=== PATIENT | female | born 1955 | race Caucasian/White ===

== ENCOUNTER 2018-10-21 00:48 | Outpatient (CLI) | payer BC, SELFPAY ==
--- NOTE | 2018-10-21 16:49 | DI.MAMMO_ITS ---
SYMPTOM/DIAGNOSIS: SCREENING, Z12.39 MAMMOGRAMS: Mammograms were interpreted according to the usual protocol including computer analysis with CAD system, tomosynthesis and C view imaging. The breast tissue is of moderate radiodensity. There is no dominant mass. There are no suspicious calcifications. There has been no significant interval change when compared with prior images. SUMMARY: No evidence of malignancy, category 1. Yearly screening mammography is recommended. Breast density, Category B. SA ASSESSMENT OF FINDINGS: Negative. Category 1. Patient will receive a letter notifying them of these results. BI-RADS category B. There are scattered areas of fibroglandular density.
== END 2018-10-21 01:08 ==
PROVIDERS: PCP Nurse Practitioner; Visit Provider Nurse Practitioner
DX: Z12.31 Encounter for screening mammogram for malignant neoplasm of breast (principal)
CPT/HCPCS: 77063; 77067

== ENCOUNTER 2018-11-28 09:45 | Outpatient (REF) | payer BC, SELFPAY ==
[2018-11-28 12:30] LABS: Calculated LDL 160 mg/dL; Cholesterol 267 mg/dL (50-200); Glucose 96 mg/dL (70-100); HDL Cholesterol 89 mg/dL (40-60); TSH (W/Ref FT4) 12.06 uIU/mL (0.358-3.74); Triglyceride 94 mg/dL (30-150)
[2018-11-29 13:56] LABS: FREE T4 0.91 ng/dL (0.76-1.46)
== END 2018-11-28 10:05 ==
LOC: NCHCN 09:45
PROVIDERS: PCP Nurse Practitioner; Visit Provider Nurse Practitioner
DX: Z00.00 Encounter for general adult medical examination without abnormal findings (principal); Z13.1 Encounter for screening for diabetes mellitus; Z13.29 Encounter for screening for other suspected endocrine disorder; Z13.220 Encounter for screening for lipoid disorders
CPT/HCPCS: 80061; 82947; 83721; 84439; 84443

== ENCOUNTER 2020-07-29 09:09 | Outpatient (REF) | payer MEDICARE, SELFPAY ==
[2020-07-29 15:45] LABS: Abs Immature Grans 0.01 10^3/uL (0.0-0.06); Absolute Basophil Count 0.04 10^3/uL (0.0-0.2); Absolute Lymphocyte Count 1.09 10^3/uL (1.2-3.4); Absolute Monocyte Count 0.46 10^3/uL (0.1-0.8); Absolute Neutrophil Count 3.49 10^3/uL (1.2-6.7); Basophils % 0.8; Eosinophils % 3.8; HGB 13.1 g/dL (11.2-15.7); Immature Grans % 0.2; Lymphocytes % 20.6; MCH 29.2 pg (27.0-33.0); MCHC 32.8 % (32.0-36.0); MCV 89.1 fL (80-95); MPV 11.4 fL (8.0-11.0); Monocytes % 8.7; Neutrophils % 65.9; Nucleated RBC 0 %; Platelet Count 298 10^3/uL (130-400); RBC 4.49 10^6/uL (3.93-5.22); RDW 12.9 % (11.7-14.6); RDW-SD 42.1 fL; WBC 5.29 10^3/uL (4.4-10.8)
[2020-07-29 16:12] LABS: ALT 30 U/L (14-59); AST 26 U/L (15-37); Alkaline Phosphatase 99 U/L (46-116); Anion Gap 6.3 mmol/L (3-11); BUN 11 mg/dL (7-18); Bilirubin, Total 0.3 mg/dL (0.2-1.0); CO2 31.7 mmol/L (21.0-32.0); CREATININE 0.8 mg/dL (0.55-1.02); Calcium 9.6 mg/dL (8.5-10.1); Calculated LDL 143 mg/dL (<100); Chloride 102 mmol/L (98-107); Cholesterol 249 mg/dL (<200); Glucose 113 mg/dL (74-106); HDL Cholesterol 90 mg/dL (40-60); Potassium 4.2 mmol/L (3.5-5.1); Sodium 140 mmol/L (136-145); Total Protein 7.5 g/dL (6.4-8.2); Triglyceride 82 mg/dL (<150)
[2020-07-29 16:27] LABS: Vitamin D 25 Total 59.1 ng/ml (30-100)
== END 2020-07-29 09:10 | disposition home or self-care (01) ==
LOC: NCHCN 09:09
PROVIDERS: PCP Nurse Practitioner; Visit Provider Nurse Practitioner
DX: Z00.00 Encounter for general adult medical examination without abnormal findings (principal); K58.9 Irritable bowel syndrome, unspecified; E78.5 Hyperlipidemia, unspecified; E03.9 Hypothyroidism, unspecified
CPT/HCPCS: 80053; 80061; 82306; 84443; 85025

== ENCOUNTER 2020-08-04 02:40 | Outpatient (CLI) | payer MEDICARE, SELFPAY ==
--- NOTE | 2020-08-04 | DI.MAMMO_ITS ---
EXAM: MG MAMMO SCREENING CLINICAL HISTORY: SCREENING, Z12.39. TECHNIQUE: Bilateral full field digital CC and MLO mammographic images were obtained with 3D tomosyn thesis and utilizing computer aided detection (CAD). COMPARISON: Prior mammograms dating back to 2010, the most recent being October 2018. FINDINGS: There is stable benign-appearing solitary nodules noted laterally in both breasts, unchanged from estevan or studies and having the appearance of benign intramammary lymph nodes. There are no new spiculated masses nor malignant appearing microcalcification groups. There is no significant architectural distortion nor skin thickening-retraction. IMPRESSION: No radiographic evidence of malignancy. Stable benign findings. BI-RADS Category 2 - Benign Findings Breast Density - Category B - Scattered areas of fibroglandular density Breast density Category C or D implies that the patient has dense breast tissue. Dense breast tissue can make it harder to find cancer on a mammogram. Dense breast tissue is also associated with an incr eased risk of breast cancer. This information about the result of the mammogram report was provided to the patient to raise their awareness. Use this report when you speak with the patient about their risks for breast cancer, which includes their family history. At that time, you may recommend additional screening tests (Ultrasoun d or MRI) as these tests may add significant information. A negative radiographic report should not delay biopsy if a dominant or clinically suspicious mass is present. Up to ten percent of cancers are not identified on mammography. A negative report may reinforce clinical impression. Adenosis and dense breasts may obscure an underlying neoplasm. False positive reports average 6 to 10%. Patient will receive a letter notifying them of these results.
== END 2020-08-04 03:00 ==
PROVIDERS: PCP Nurse Practitioner; Visit Provider Nurse Practitioner
DX: Z12.31 Encounter for screening mammogram for malignant neoplasm of breast (principal)
CPT/HCPCS: 77063; 77067

== ENCOUNTER → 2020-08-05 15:20 | Outpatient (BNVA) | payer MEDICARE, SELFPAY | PROVIDERS: PCP Nurse Practitioner; Referring Provider Nurse Practitioner; Visit Provider Physical Therapy Assistant | DX: Z12.11 Encounter for screening for malignant neoplasm of colon (principal) ==

== ENCOUNTER 2020-08-06 08:23 | Outpatient (CLI) | payer MEDICARE, SELFPAY ==
[2020-08-06 10:18] LABS: Source Nasal/Nares
[2020-08-06 14:35] LABS: COVID-19 PCR Negative (Negative)
== END 2020-08-06 08:24 | disposition home or self-care (01) ==
PROVIDERS: PCP Nurse Practitioner; Visit Provider Surgery
DX: Z20.822 Contact with and (suspected) exposure to COVID-19 (principal); Z01.818 Encounter for other preprocedural examination
CPT/HCPCS: 87635

== ENCOUNTER 2020-08-09 10:06 | Day surgery (SDC) | payer MEDICARE, SELFPAY ==
--- NOTE | 2020-08-09 06:38 | W.COLOREPORT ---
Date of service: 08/09/20 Time of Service: 12:26 Colonoscopy Report Date of procedure: 08/09/20 Pre-op diagnosis general: colon cancer screening Procedure: sigmoidoscopy Surgeon: Laura Yee Anesthesia Type: General:No Airway (ASA 2/Sixto Orona, CHARLIE) Estimated blood loss (mL): 0 Pathology: none sent Complications: None Disposition: same day Indications: The patient is here for Colonoscopy pre-op. Her last screening was in 2010 and was unremarkable. She has no family history of colon cancer. She has not had any bowel habit changes. -Discussed colonoscopy bowel prep as well as the procedure. Discussed possible complications of the procedure to include bleeding, pain, perforation, missed small lesion/polyp, sore throat, aspiration and adverse reaction to the medications. Questions were answered to patient?s satisfaction. No guarantees were implied or given. Prep: Miralax/Dulcolax Findings: There was an acute angle in the sigmoid colon in the pelvis that I was unable to get through. Procedure Description: After informed consent was obtained the patient was taken to the procedure room and placed in a left decubitous position. Monitors were applied and a time out was done. The patients name, date of , procedure, allergies to medications and metal in their body was reviewed. The patient was then sedated. Once sedated and comfortable a rectal exam was done. External exam was normal. Internal exam revealed a normal sphincter tone and no palpable masses. The scope was then introduced and retro-flexed. No internal hemorrhoids, polyps or masses were identified on retro-flexion. The scope was then advanced to the sigmoid colon. There was a sharp angle as I tried to get out of the pelvis. I attempted to get around the corner for 20 minutes without success. At this point I felt that if I tried to continue I may perforate her so the procedure was aborted. The scope was removed and the patient was woken up and taken back to Same day surgery in stable condition. The patient tolerated the procedure well and there were no immediate complications. Follow up: As the patient has not had any polyps in the past I think doing the Cologuard would be a good alternative for her.
--- NOTE | 2020-08-09 06:39 | W.PM.DSUDISC ---
Discharge Plan Disposition Patient Disposition: HOME Condition: Good Discharge Details Reason For Visit: colonoscopy Attending Provider: Laura Yee Primary Care Provider: Donna Dangelo Home Meds and New Rx's Prescriptions: Continued cholecalciferol (vitamin D3) 75 mcg (3,000 unit) tablet 75 mcg PO DAILY RF: 0 amoxicillin 500 mg capsule 500 mg PO QID RF: 0 naproxen [EC-Naproxen] 500 mg tablet,delayed release (DR/EC) 500 mg PO BID RF: 0 Adult 50 Plus Probiotic 4 billion cell capsule 4,000 mmu cells PO DAILY RF: 0 levothyroxine 125 mcg capsule 125 mcg PO DAILY RF: 0 omeprazole 40 mg capsule,delayed release(DR/EC) 40 mg PO DAILY RF: 0 dicyclomine 20 mg tablet 20 mg PO QID RF: 0 multivitamin Tablet 1 tab PO DAILY RF: 0 Discontinued bisacodyl [Dulcolax (bisacodyl)] 5 mg tablet,delayed release (DR/EC) 5 mg PO ONCE Qty: 4 RF: 0 polyethylene glycol 3350 17 gram/dose powder 238 g PO ONCE Qty: 238 RF: 0 Discharge Instructions Additional Instructions: Findings: Unable to complete due to a sharp angle in the large bowel in the pelvis Follow up: NOt sure Please call if you develop: fevers >101.5 Nausea or Vomiting Abdominal pain that is not transient DAY SURGERY UNIT POST ENDOSCOPY INSTRUCTIONS 1. Because there will be medication in your system for the next 24 hours, you may feel a little sleepy. Your coordination will be affected. Therefore: a. Do not drive or operate dangerous equipment for 24 hours. b. Do not drink alcohol beverages for 24 hours (not even beer). c. Plan to go home and rest for the day. 2. Generally there are no restrictions on your activity after a day or so has gone by, but you may feel a bit fatigued for a few days. 3 After you arrive home you may have a light meal and return to a normal diet as you can tolerate it without feeling sick to your stomach. 4. After surgery, you may feel pain or discomfort. This should be only transient, but if it persists please contact your doctor. 5. If there are any questions regarding the findings of your procedure, please feel free to contact your doctor. 6. If you are unable to contact your doctor with a problem, contact the hospital at [phone]. 8. Continue all your regular medications unless directed otherwise. I understand the above instructions and have no questions. Signature of Patient or Responsible Adult Escort Date/Time Name of Responsible Adult Escort Signature of Nurse Date/Time Activity:: Activity as Tolerated Diet:: As Tolerated Discharge Orders Discharge Orders: Discharge Order (Routine); Ordered 08/09/20 Ordered By: Laura Yee
[2020-08-09 10:15] VITALS: BP 164/94; PULSE 78; RESP 18; TEMP 36.7; O2SAT 96
[2020-08-09] MEDS: Lactated Ringers 1,000 ML 80 ML IV (10:55)
[2020-08-09] MEDS: Hyoscyamine 0.125 MG SL/ORAL/CHEW SL (12:49)
[2020-08-09 13:00] VITALS: BP 140/71; PULSE 74; RESP 18; TEMP 36.5; O2SAT 100
== END 2020-08-09 13:48 | disposition home or self-care (01) ==
PROVIDERS: PCP Nurse Practitioner; Visit Provider Surgery
PROC: 0DJD8ZZ Inspection of Lower Intestinal Tract, Via Natural or Artificial Opening Endoscopic (ICD-10-PCS; CPT 45378; principal; 2020-08-09 11:45)
DX: Z12.11 Encounter for screening for malignant neoplasm of colon (principal); K62.5 Hemorrhage of anus and rectum
CPT/HCPCS: G0105; J2001; J3490

== ENCOUNTER 2020-08-13 04:03 | Outpatient (CLI) | payer MEDICARE, SELFPAY ==
[2020-08-13] MEDS: Omnipaque 350 MG/ML 50 ML BTL IJ (09:50)
[2020-08-13] MEDS: Normal Saline - Diluent 50 ML VIAL IV (10:36)
[2020-08-13] MEDS: Omnipaque 350 MG/ML 100 ML BTL IJ (10:37)
--- NOTE | 2020-08-13 10:41 | DI.CT_ITS ---
EXAM: CT ABDOMEN PELVIS W INDICATION: bleeding, diarrhea, unable to get the scope past SIGMOID COLON. COMPARISON: No exams were available for comparison TECHNIQUE: FINDINGS: CT examination of the abdomen and pelvis was performed with a bolus infusion of 100 cc of Omnipaque 3 50. Images obtained through the lung bases are unremarkable. The liver is unremarkable in appearance except for an incidental 9 millimeter left hepatic lobe cyst. Gallbladder and bile ducts are CT normal. Pancreas appears normal. Spleen is unremarkable in appearance. Adrenals appear normal. The kidneys are unremarkable except for a 14 millimeter left renal cortical cyst with no evidence of hydronephrosis, nephrolithiasis, or renal mass.. Urinary bladder unremarkable. Abdominal aorta is of normal diameter and no major vascular abnormality is seen. No abdominal wall hernia. No abdominal or pelvic adenopathy. [employer] structures appear intact. Appendix is normal. No evidence of diverticulitis or bowel obstruction. IMPRESSION: Negative CT examination of the abdomen and pelvis. RADIATION DOSE DELIVERED: 973.73mGy.cm Total DLP 973.73mGy.cm Total DLP RADIATION OPTIMIZATION: All CT scans at this facility use at least one of these dose optimization te chniques: automated exposure control; mA and/or kV adjustment per patient size (includes targeted exa ms where dose is matched to clinical indication); or iterative reconstruction.
== END 2020-08-13 04:23 ==
PROVIDERS: PCP Nurse Practitioner; Visit Provider Surgery
DX: K92.1 Melena (principal); R19.7 Diarrhea, unspecified
CPT/HCPCS: 74177; J3490; Q9967

== ENCOUNTER 2020-11-03 11:09 | Day surgery (SDC) | payer MEDICARE, SELFPAY ==
--- NOTE | 2020-11-03 06:54 | W.PREOPHP ---
Date of service: 11/03/20 Assessment and Plan Assessment and plan (1) Blood in stool: Status: Acute Assessment and plan: The patient is here for Colonoscopy pre-op. Her last screening was in 2010 and was unremarkable. She has no family history of colon cancer. She has noted bowel habit changes that include multiple BMs per day, initally starting out normal which progress to soft stools, with visible bright red blood on the stool. -Discussed colonoscopy bowel prep as well as the procedure. Discussed possible complications of the procedure to include bleeding, pain, perforation, missed small lesion/polyp, sore throat, aspiration and adverse reaction to the medications. Questions were answered to patient?s satisfaction. No guarantees were implied or given. She will hold: Vitamin D and Naproxen x 5 days prior to her procedure. I spent 30 minutes in reviewing the record, seeing the patient, providing patient education, answering patient's questions and documenting in the medical record. P// Colonoscopy under sedation. History of Present Illness Narrative: 65 y/o female with history of GERD and IBS presents for colonoscopy screening pre-op. Her last screening was in 2010 following a (+) iFOB which was unremarkable. She denies a family history of colon cancer. She reports that each morning she has multiple bowel movements, the first being normal followed by numerous bowel movements of softer stools that at times have bright red blood. These episodes are associated with bloating and lower abdominal pain. She denies constitutional symptoms. Denies use of marijuana or any other recreational or illegal drugs. She denies chest pain, palpitations, dyspnea or dyspnea with exertion. She denies prior history or family history of adverse reactions or complications with anesthesia. The patient denies any history of stroke, DC, seizures, bleeding or clotting disorders. She denies having any implanted metal in her body. I attempted a colonoscopy in July but I could not get through a very sharp corner. She is here today to attempt it again. Review of Systems Cardiovascular Cardiovascular: Denies chest pain, Denies chest pain at rest, Denies irregular heart rhythm, Denies dyspnea and Denies dyspnea on exertion Respiratory Respiratory: Reports cough, Denies dyspnea and Denies dyspnea on exertion Gastrointestinal Gastrointestinal: Reports as per HPI Genitourinary Genitourinary: Denies dysuria, Reports urinary incontinence and Denies urinary urgency Endocrine Endocrine: Reports system reviewed and no additional complaints, except as documented Hematologic/Lymphatic Hematologic/Lymphatic: Denies easy bruising and Denies lymphadenopathy PFSH Medical History GERD (gastroesophageal reflux disease) Hyperlipidemia Hypothyroid Irritable bowel syndrome Tooth infection Surgical History History of cataract surgery History of colonoscopy Social History Smoking/Tobacco Use Status: Former Tobacco Use Quit Date: 05/14/05 Smoking risk assessment performed?: Yes Alcohol Intake: current Alcohol Intake frequency: 0-2 drinks per day Alcohol type: wine Drug use: Never Substance use type: does not use Do you feel safe at home: Yes Do you feel safe in your relationship?: Yes Meds Allergies and Home Medications Allergies Allergy/AdvReac Type Severity Reaction Status Date / Time Penicillins Allergy Unknown unknown. Verified 11/03/20 11:28 shellfish derived Allergy Unknown Hives Verified 11/03/20 11:28 Home Medications Medication Instructions Recorded Confirmed Type dicyclomine 20 mg tablet 20 mg PO QID 08/03/20 11/03/20 History lactobacillus combination no.9 4 4,000 mmu cells PO DAILY 08/03/20 11/03/20 History billion cell capsule levothyroxine 125 mcg capsule 125 mcg PO DAILY 08/03/20 11/03/20 History multivitamin 1 tab PO DAILY 08/03/20 11/03/20 History naproxen 500 mg tablet,delayed 500 mg PO BID 08/03/20 11/03/20 History release omeprazole 40 mg capsule,delayed 40 mg PO DAILY 08/03/20 11/03/20 History release cholecalciferol (vitamin D3) 75 75 mcg PO DAILY 08/05/20 11/03/20 History mcg (3,000 unit) tablet bisacodyl 5 mg tablet,delayed 5 mg PO ONCE #4 tab 10/28/20 11/02/20 Rx release polyethylene glycol 3350 17 238 g PO ONCE #238 g 10/28/20 11/03/20 Rx gram/dose oral powder Exam Const General: healthy appearing and comfortable Resp Effort & Inspection: normal respiratory effort Auscultation: clear to auscultation bilaterally Cardio Rate: regular rate Rhythm: regular rhythm Heart Sounds: no click, no gallops and no murmurs
--- NOTE | 2020-11-03 06:57 | W.PM.DSUDISC ---
Discharge Plan Disposition Patient Disposition: HOME Condition: Good Discharge Details Reason For Visit: Colonoscopy Attending Provider: Laura Yee Primary Care Provider: Donna Dangelo Home Meds and New Rx's Prescriptions: Continued cholecalciferol (vitamin D3) 75 mcg (3,000 unit) tablet 75 mcg PO DAILY RF: 0 naproxen [EC-Naproxen] 500 mg tablet,delayed release (DR/EC) 500 mg PO BID RF: 0 Adult 50 Plus Probiotic 4 billion cell capsule 4,000 mmu cells PO DAILY RF: 0 levothyroxine 125 mcg capsule 125 mcg PO DAILY RF: 0 omeprazole 40 mg capsule,delayed release(DR/EC) 40 mg PO DAILY RF: 0 dicyclomine 20 mg tablet 20 mg PO QID RF: 0 multivitamin Tablet 1 tab PO DAILY RF: 0 Discontinued polyethylene glycol 3350 17 gram/dose powder 238 g PO ONCE Qty: 238 RF: 0 bisacodyl [Dulcolax (bisacodyl)] 5 mg tablet,delayed release (DR/EC) 5 mg PO ONCE Qty: 4 RF: 0 Discharge Instructions Instructions: Hemorrhoids (DC) Additional Instructions: Findings: Internal hemorrhoids Follow up: 10 years Please call if you develop: fevers >101.5 Nausea or Vomiting Abdominal pain that is not transient Rectal bleeding that is more then a tbsp A hard abdomen and inability to pass gas DAY SURGERY UNIT POST ENDOSCOPY INSTRUCTIONS Instructions for everyone who is given Anesthesia: For your safety, please do the following for the next 24 Hours: a. Do not drive or operate dangerous equipment b. Do not drink alcohol beverages or use any recreational drugs for the first 24 hours or while taking pain medications. The medications in your body may have a reaction that can be dangerous. c. Do not make any important decisions or sign any important papers 1. Generally there are no restrictions on your activity after a day or so has gone by, but you may feel a bit fatigued for a few days. 2. After you arrive home you may have a light meal and return to a normal diet as you can tolerate it without feeling sick to your stomach. 3. After surgery, you may feel pain or discomfort. This should be only transient, but if it persists please contact your doctor. 4. If there are any questions regarding the findings of your procedure, please feel free to contact your doctor. 6. If you are unable to contact your doctor with a problem, contact the hospital at [phone]. 7. Continue all your regular medications unless directed otherwise. I understand the above instructions and have no questions. Signature of Patient or Responsible Adult Escort Date/Time Name of Responsible Adult Escort Signature of Nurse Date/Time Activity:: Activity as Tolerated Diet:: As Tolerated Discharge Orders Discharge Orders: Discharge Order (Routine); Ordered 11/03/20 Ordered By: Laura Yee DS: Diagnosis Discharge Diagnosis (1) Blood in stool: Status: Acute
--- NOTE | 2020-11-03 06:58 | W.COLOREPORT ---
Date of service: 11/03/20 Time of Service: 12:27 Colonoscopy Report Date of procedure: 11/03/20 Pre-op diagnosis general: occult blood Post-op diagnosis procedure note: other (internal hemorrhoids) Procedure: Colonoscopy Surgeon: Laura Yee Anesthesia Type: General:No Airway (ASA 2/ carol Decker, CHARLIE) Pathology: none sent Complications: None Disposition: same day Indications: The patient is here for Colonoscopy pre-op. Her last screening was in 2010 and was unremarkable. She has no family history of colon cancer. She has noted bowel habit changes that include multiple BMs per day, initally starting out normal which progress to soft stools, with visible bright red blood on the stool. -Discussed colonoscopy bowel prep as well as the procedure. Discussed possible complications of the procedure to include bleeding, pain, perforation, missed small lesion/polyp, sore throat, aspiration and adverse reaction to the medications. Questions were answered to patient?s satisfaction. No guarantees were implied or given. She will hold: Vitamin D and Naproxen x 5 days prior to her procedure. I spent 30 minutes in reviewing the record, seeing the patient, providing patient education, answering patient's questions and documenting in the medical record. P// Colonoscopy under sedation. Prep: Miralax/Dulcolax Procedure Start Time: 12:27 Procedure End Time: 12:54 Retraction Time: 12 minutes Findings: Grade 1 internal hemorrhoids Procedure Description: After informed consent was obtained the patient was taken to the procedure room and placed in a left decubitous position. Monitors were applied and a time out was done. The patients name, date of , procedure, allergies to medications and metal in their body was reviewed. The patient was then sedated. Once sedated and comfortable a rectal exam was done. External exam was normal. Internal exam revealed a normal sphincter tone and no palpable masses. The scope was then introduced and retro-flexed. No internal hemorrhoids, polyps or masses were identified on retro-flexion. The scope was then advanced to the cecum with some difficulty. The ileocecal vlave and appendiceal orifice were identified. The prep was adequate. The scope was then slowly retracted over 12 minutes back into the rectum. There were no polyps. There was no diverticulosis noted. The scope was removed and the patient was woken up and taken back to Same day surgery in stable condition. The patient tolerated the procedure well and there were no immediate complications. Follow up: The patient should follow up in 10 years unless they develop changes in bowel habits or other new gastrointestinal complaints.
--- NOTE | 2020-11-03 11:16 | ANES.PREOP_ITS ---
General Info Date of Service Date Performed: 11/03/20 Height: 5 ft 7 in Weight: 77.6 kg Body Mass Index (BMI): 26.8 Surgical Procedure: Operation Date: 11/03/20 11:35 Proposed Procedures Side Surgeon p Ramy Yee MD Meds Allergies and Home Medications Allergies Allergy/AdvReac Type Severity Reaction Status Date / Time Penicillins Allergy Unknown unknown. Verified 11/03/20 11:28 shellfish derived Allergy Unknown Hives Verified 11/03/20 11:28 Home Medication Medication Instructions Recorded dicyclomine 20 mg tablet 20 mg PO QID 08/03/20 lactobacillus combination no.9 4 4,000 mmu cells PO DAILY 08/03/20 billion cell capsule levothyroxine 125 mcg capsule 125 mcg PO DAILY 08/03/20 multivitamin 1 tab PO DAILY 08/03/20 naproxen 500 mg tablet,delayed 500 mg PO BID 08/03/20 release omeprazole 40 mg capsule,delayed 40 mg PO DAILY 08/03/20 release cholecalciferol (vitamin D3) 75 75 mcg PO DAILY 08/05/20 mcg (3,000 unit) tablet bisacodyl 5 mg tablet,delayed 5 mg PO ONCE #4 tab 10/28/20 release polyethylene glycol 3350 17 238 g PO ONCE #238 g 10/28/20 gram/dose oral powder Current Visit Medications: Current Medications Generic Name Dose Route Start Last Admin Trade Name Freq PRN Reason Stop Dose Admin Hyoscyamine Sulfate 0.125 mg 11/03/20 06:59 Hyoscyamine 0.125 Mg Sl/Oral/Chew SL DIRECTED PRN Ringer's Solution 1,000 mls @ 80 mls/hr 11/03/20 06:00 IV 12/02/20 23:59 [facility] IV Miscellaneous Supplies 1 each 11/03/20 06:00 Iv Access IV 12/02/20 23:59 DIRECTED PAVEL Ondansetron HCl 4 mg 11/03/20 06:59 Ondansetron 4 Mg/2 Ml Vial IVP Q4H PRN PRN Nausea / Vomiting Sodium Chloride 0 ml 11/03/20 06:00 Normal Saline Flush 10 Ml Syr IV 12/02/20 23:59 PRN PRN Sodium Chloride 0 ml 11/03/20 06:00 Normal Saline 10 Ml Vial IJ 07/22/21 23:59 DIRECTED PRN Sterile Water 0 ml 11/03/20 06:00 Water,Injection,Sterile 10 Ml Vial IJ 12/02/20 23:59 DIRECTED PRN PFSH Active Problems Active Problems: Problem Status Onset Code Blood in stool K92.1 IBS (irritable bowel syndrome) K58.9 Medical History Medical History GERD (gastroesophageal reflux disease) Hyperlipidemia Hypothyroid Irritable bowel syndrome Tooth infection Surgical History Surgical History History of cataract surgery History of colonoscopy Tobacco Smoking/Tobacco Use Status: Former Tobacco Use Alcohol Alcohol Intake: current Alcohol intake frequency: 0-2 drinks per day Alcohol type: wine Substance Use Substance use: Never Substance use type: does not use Vital Signs and Lab Results Lab Results Blood Type / Crossmatch: 2 No Data to Display Complete Blood Count: No Data to Display Complete Metabolic Panel: No Data to Display Liver Function Panel: No Data to Display Coagulation Panel: No Data to Display Cardiac Panel: No Data to Display Arterial Blood Gas: No Data to Display Venous Blood Gas: No Data to Display Pancreas Panel: No Data to Display Thyroid Panel: No Data to Display Infectious Disease: No Data to Display Blood Cultures: No Data to Display Toxicology Panel: No Data to Display Anesthesia Assessment and Plan Anesthesia History Personal History: No History of Anesthesia Complications Family History: No Family History of Anesthesia Complications Exercise Tolerance Exercise Tolerance: Metabolic Equivalents<4 Pertinent Negatives Pertinent Negatives: No Symptoms of GERD (Controlled w meds) and No Major Pulmonary Symptoms or Complaints Cardiac & Pulmonary Exam Cardiac Exam: Normal S1/S2 Heart Sounds Pulmonary Exam: Clear Bilateral Breath Sounds Airway Exam Known Difficult Airway: No Mallampati Class: 2 Mouth Opening: Normal (> 3cm) Thyromental Distance: Greater than 3 cm Neck Range of Motion: Full ROM Neck Circumference: Normal Teeth Condition: Normal Dentition ASA Classification ASA Score: ASA 2 Emergency Case?: No NPO Status NPO Status: NPO Clears >2 hours, Solids >8 hours Anesthesia Plan Resuscitation Status: Full Code Anesthesia Technique: General Anesthesia Airway Planned: Natural Airway Monitors Used: Standard Monitors
[2020-11-03 11:19] VITALS: BP 153/68; PULSE 70; RESP 16; TEMP 36.3; O2SAT 99
[2020-11-03 11:39] VITALS: BMI 26.8
[2020-11-03] MEDS: Lactated Ringers 1,000 ML 80 ML IV (11:40)
[2020-11-03 13:00] VITALS: BP 141/69; PULSE 62; RESP 16; TEMP 36; O2SAT 99
--- NOTE | 2020-11-03 13:01 | W.ANESPOSTOP ---
Postoperative Evaluation Date, Time and Location Date Performed: 11/03/20 Time Performed: 13:09 Patient Location: Day Surgery Unit Vital Signs Most Recent Imported Vital Signs: Most Recent Vital Signs Temp Pulse Resp BP Pulse Ox 36.3 C L 70 16 153/68 H 99 11/03/20 11:19 11/03/20 11:19 11/03/20 11:19 11/03/20 11:19 11/03/20 11:19 Pain Score Most Recent Pain Score: Most Recent Pain Score Pain Level 0 11/03/20 11:19 Assessment Mental Status: Arousable with meaningful communication Airway and Respiratory Function: Patent airway with normal (patient baseline) respiratory exam Cardiovascular Function: Hemodynamically Stable Hydration Status: Adequately Hydrated Nausea & Vomiting: No Nausea or Vomiting Pain: Pt. Denies Any Pain Peripheral Nerve Block: Patient did not receive a nerve block
[2020-11-03 13:29] VITALS: BP 158/74; PULSE 62; RESP 16; TEMP 36.5; O2SAT 95
== END 2020-11-03 14:04 | disposition home or self-care (01) ==
LOC: SUR 11:10
PROVIDERS: PCP Nurse Practitioner; Visit Provider Surgery
PROC: 0DJD8ZZ Inspection of Lower Intestinal Tract, Via Natural or Artificial Opening Endoscopic (ICD-10-PCS; CPT 45378; principal; 2020-11-03 11:30)
DX: K64.0 First degree hemorrhoids (principal); K92.1 Melena; K21.9 Gastro-esophageal reflux disease without esophagitis; K58.9 Irritable bowel syndrome, unspecified
CPT/HCPCS: 45378; J2405

== ENCOUNTER 2021-07-20 03:48 | Outpatient (CLI) | payer MEDICARE, SELFPAY ==
[2021-07-20 13:42] LABS: Vitamin B12 660 pg/mL (193-986)
[2021-07-21 11:08] LABS: C3 Complement 153 mg/dL (81-157); C4 Complement 37 mg/dL (13-39)
[2021-07-21 12:18] LABS: dsDNA Ab, IgG 14.3 IU/mL (<30.0)
[2021-07-21 13:26] LABS: RNP Ab, IgG 7.5 Units (<20.0); SS-A Antibody 2.3 Units (<20.0); SS-B (La) Ab, IgG 1.8 Units (<20.0); Sm (Smith) Ab, IgG 3.6 Units (<20.0)
== END 2021-07-20 03:49 | disposition home or self-care (01) ==
LOC: LBO 03:48
PROVIDERS: PCP Nurse Practitioner; Visit Provider Internal Medicine
DX: G62.9 Polyneuropathy, unspecified (principal)
CPT/HCPCS: 36415; 82607; 86160; 86225; 86235

== ENCOUNTER 2021-08-10 15:09 | Outpatient (REF) | payer MEDICARE, SELFPAY ==
[2021-08-10 20:14] LABS: HCT 39.3 % (36.0-46.0); HGB 12.6 g/dL (11.2-15.7); MCH 28.6 pg (27.0-33.0); MCHC 32.1 % (32.0-36.0); MCV 89.1 fL (80-95); MPV 11.6 fL (8.0-11.0); Platelet Count 305 10^3/uL (130-400); RBC 4.41 10^6/uL (3.93-5.22); RDW 13.4 % (11.7-14.6); WBC 5.75 10^3/uL (4.4-10.8)
[2021-08-10 20:36] LABS: ALT 38 U/L (14-59); AST 30 U/L (15-37); Alkaline Phosphatase 105 U/L (46-116); Anion Gap 7.7 mmol/L (3-11); BUN 9 mg/dL (7-18); Bilirubin, Total 0.3 mg/dL (0.2-1.0); CO2 28.3 mmol/L (21.0-32.0); CREATININE 0.7 mg/dL (0.55-1.02); Calcium 9.4 mg/dL (8.5-10.1); Chloride 105 mmol/L (98-107); Glucose 105 mg/dL (74-106); Potassium 4.2 mmol/L (3.5-5.1); Sodium 141 mmol/L (136-145); TSH (W/Ref FT4) 0.28 uIU/mL (0.36-3.74); Total Protein 7.5 g/dL (6.4-8.2)
[2021-08-10 20:56] LABS: FREE T4 1.15 ng/dL (0.76-1.46)
== END 2021-08-10 15:10 | disposition home or self-care (01) ==
LOC: NCHCN 15:09
PROVIDERS: PCP Nurse Practitioner; Visit Provider Nurse Practitioner Family
DX: E03.9 Hypothyroidism, unspecified (principal); K58.9 Irritable bowel syndrome, unspecified; F10.20 Alcohol dependence, uncomplicated
CPT/HCPCS: 80053; 85027; 84439; 84443

== ENCOUNTER 2021-12-23 16:29 | Outpatient (REF) | payer MEDICARE, SELFPAY | END 2021-12-23 16:30 | disposition home or self-care (01) | LOC: NCHCN 16:29 | PROVIDERS: PCP Nurse Practitioner; Visit Provider Nurse Practitioner Family | DX: R35.0 Frequency of micturition (principal) | CPT/HCPCS: 87086 ==

== ENCOUNTER 2022-03-15 11:25 | Outpatient (REF) | payer MEDICARE, SELFPAY ==
[2022-03-15 15:49] LABS: TSH (W/Ref FT4) 0.61 uIU/mL (0.36-3.74)
== END 2022-03-15 11:26 | disposition home or self-care (01) ==
LOC: NCHCN 11:25
PROVIDERS: PCP Nurse Practitioner Family; Visit Provider Nurse Practitioner Family
DX: E03.9 Hypothyroidism, unspecified (principal)
CPT/HCPCS: 84443

== ENCOUNTER 2022-06-13 15:37 | Outpatient (REF) | payer MEDICARE, SELFPAY | END 2022-06-13 15:38 | disposition home or self-care (01) | LOC: LBN 15:37 | PROVIDERS: PCP Nurse Practitioner Family; Visit Provider Obstetrics & Gynecology | DX: R35.0 Frequency of micturition (principal) | CPT/HCPCS: 87086 ==

== ENCOUNTER 2022-06-27 15:53 | Outpatient (REF) | payer MEDICARE, SELFPAY ==
--- NOTE | 2022-06-27 12:00 | PAPFT_PTH ---
PATIENT: Tia Cedeno LOC: N U#:[id number] AGE/SX: 66/F ROOM: RE06/27/[address]: Beatriz Ann DO : 1955 BED: DIS: 06/27/2022 SPEC #: [id number] RECD: 06/27/22 17:13 STATUS: ASA REQ #: [id number] [place]: 06/27/22 12:[address]: Beatriz Ann DEPT: [facility] Cytology RECD BY: Tia Ayoub ENTERED: 06/27/22 17:13 SP TYPE: PAPFT OT DR: STEFFEN PRESTON NP Tissues: 1 - CX/ENDOCX FOR PAP SMEARS Procedures: PAP THIN PREP/UVM Screening Comments: [id number]
== END 2022-06-27 15:54 | disposition home or self-care (01) ==
LOC: LBN 15:53
PROVIDERS: PCP Nurse Practitioner Family; Visit Provider Obstetrics & Gynecology
DX: Z12.4 Encounter for screening for malignant neoplasm of cervix (principal)
CPT/HCPCS: 88142

== ENCOUNTER 2022-07-31 02:25 | Outpatient (CLI) | payer MEDICARE, SELFPAY ==
--- NOTE | 2022-07-31 07:30 | DI.US_ITS ---
Exam(s) US PELVIS TRANSVAGINAL EXAM: US PELVIS TRANSVAGINAL CLINICAL HISTORY: Postmenopausal bleeding,n95.0 TECHNIQUE: Ultrasound of the pelvis was performed both transabdominal and transvaginal. COMPARISON: US ABDOMEN ULTRASOUND (P) from 12/12/[address] ABDOMEN PELVIS W from 08/13/2020 FINDINGS: UTERUS: Nongravid and anteverted Measures 6 cm length x 2.6 cm AP x 4 cm wide. There are hyperechoic uterine fibroids, probably calcified. Posteriorly towards the fundus there is a 1.4 x 1.3 cm fibroid. Anteriorly there is a 1.3 x 1.2 cm fibroid and there other smaller calcified fibroids at the level of the fundal myometrium. Endometrial thickness measures 6. mm. The endometrium contains multiple small cystic areas. CERVIX: There are no obvious nabothian cysts. RIGHT OVARY: Not identified. LEFT OVARY: Measures 1.3 x 1.1 x 1.1 cm No significant cysts nor masses evident in the left ovary. CUL-DE-SAC: No free fluid evident. IMPRESSION: 1. Slightly thickened and cystic appearing endometrium. Close follow-up recommended. 2. Calcified uterine fibroids. 3. Right ovary not seen. Left ovary appears unremarkable. No free fluid in the cul-de-sac. DATA REPOSITORY:
== END 2022-07-31 02:45 ==
LOC: DI 02:25
PROVIDERS: PCP Nurse Practitioner Family; Visit Provider Obstetrics & Gynecology
DX: N95.0 Postmenopausal bleeding (principal); D25.9 Leiomyoma of uterus, unspecified; R93.89 Abnormal findings on diagnostic imaging of other specified body structures
CPT/HCPCS: 76830; 76856

== ENCOUNTER 2022-08-01 15:58 | Outpatient (REF) | payer MEDICARE, SELFPAY ==
--- NOTE | 2022-08-01 15:00 | ENDOMET_PTH ---
PATIENT: Tia Cedeno LOC: N U#:[id number] AGE/SX: 67/F ROOM: RE08/01/[address]: Beatriz Ann DO : 1955 BED: DIS: 08/01/2022 SPEC #: [id number] RECD: 08/01/22 17:12 STATUS: [place] REQ #: [id number] [place]: 08/01/22 15:[address]: Beatriz Ann DEPT: Surgical Specimen RECD BY: Tia Ayoub ENTERED: 08/01/22 17:13 SP TYPE: Endomet OTHR DR: STEFFEN PRESTON NP Tissues: 1 - ENDOMETRIUM BX/NANETTE Procedures: GROSS AND MICRO LEVEL 4 Comments: [id number]
== END 2022-08-01 15:59 | disposition home or self-care (01) ==
LOC: LBN 15:58
PROVIDERS: PCP Nurse Practitioner Family; Visit Provider Obstetrics & Gynecology
DX: N85.8 Other specified noninflammatory disorders of uterus (principal); N95.0 Postmenopausal bleeding; R93.89 Abnormal findings on diagnostic imaging of other specified body structures
CPT/HCPCS: 88305

== ENCOUNTER 2022-08-03 03:52 | Outpatient (CLI) | payer MEDICARE, SELFPAY ==
--- NOTE | 2022-08-03 | DI.MAMMO_ITS ---
Exam(s) MAMMO SCREENING EXAM: MAMMO SCREENING CLINICAL HISTORY: SCREENING,Z12.31 TECHNIQUE: Bilateral full field digital CC and MLO mammographic images were obtained with 3D tomosyn thesis and utilizing computer aided detection (CAD). COMPARISON: Available for comparison. FINDINGS: Masses/Architectural Distortion: Solitary nodules are again seen in the upper outer quadrants of both breasts. No suspicious nodules or areas of architectural distortion are present. Microcalcifications: No suspicious pleomorphic-type are seen. Skin Thickening/Nipple Retraction: None. IMPRESSION: 1. No significant interval change with no specific features of malignancy noted. 2. Unless there is more urgent need, screening mammography is recommended, as per [employer] guidelines. BI-RADS Category 2 - Benign Findings Breast Density - Category B - Scattered areas of fibroglandular density Breast density category C or D implies that the patient has dense breast tissue. Dense breast tissue is very common and is not abnormal but dense breast tissue can make it harder to find cancer on a ma mmogram. Also, dense breast tissue may increase their breast cancer risk. This information about the result of the mammogram report was provided to the patient to raise their awareness. Use this report when you speak with the patient about their risks for breast cancer, which includes their family hist ory. At that time, you may recommend for more screening tests (Ultrasound or MRI) as they might be us eful based on their risk. A negative radiographic report should not delay biopsy if a dominant or clinically suspicious mass is present. Up to ten percent of cancers are not identified on mammography. A negative report may reinforce clinical impression. Adenosis and dense breasts may obscure an underlying neoplasm. False positive reports average 6 to 10%. Patient will receive a letter notifying them of these results.
== END 2022-08-03 04:12 ==
LOC: DI 03:52
PROVIDERS: PCP Nurse Practitioner Family; Visit Provider Nurse Practitioner Family
DX: Z12.31 Encounter for screening mammogram for malignant neoplasm of breast (principal); N60.81 Other benign mammary dysplasias of right breast; N60.82 Other benign mammary dysplasias of left breast
CPT/HCPCS: 77063; 77067

== ENCOUNTER 2023-03-21 15:58 | Outpatient (REF) | payer MEDICARE, SELFPAY ==
[2023-03-21 17:17] LABS: Anion Gap 8.3 mmol/L (3-11); BUN 9 mg/dL (7-18); CO2 28.7 mmol/L (21.0-32.0); CREATININE 0.8 mg/dL (0.55-1.02); Calcium 9.8 mg/dL (8.5-10.1); Calculated LDL 126 mg/dL (<100); Chloride 102 mmol/L (98-107); Cholesterol 247 mg/dL (<200); Estimated GFR 80.21 (mL/min/1.73m2); Glucose 107 mg/dL (74-106); HDL Cholesterol 93 mg/dL (40-60); Potassium 3.7 mmol/L (3.5-5.1); Sodium 139 mmol/L (136-145); TSH (W/Ref FT4) 0.06 uIU/mL (0.36-3.74); Triglyceride 142 mg/dL (<150)
[2023-03-21 17:35] LABS: FREE T4 1.23 ng/dL (0.76-1.46)
== END 2023-03-21 15:59 | disposition home or self-care (01) ==
LOC: NCHCN 15:58
PROVIDERS: PCP Nurse Practitioner Family; Visit Provider Nurse Practitioner Family
DX: E78.5 Hyperlipidemia, unspecified (principal)
CPT/HCPCS: 80048; 80061; 84439; 84443

== ENCOUNTER 2023-05-31 11:24 | Outpatient (REF) | payer MEDICARE, SELFPAY ==
[2023-05-31 19:05] LABS: FREE T4 1.38 ng/dL (0.76-1.46); TSH 0.24 uIU/mL (0.36-3.74)
== END 2023-05-31 11:25 | disposition home or self-care (01) ==
LOC: NCHCN 11:24
PROVIDERS: PCP Nurse Practitioner Family; Visit Provider Nurse Practitioner Family
DX: E03.9 Hypothyroidism, unspecified (principal)
CPT/HCPCS: 84439; 84443

== ENCOUNTER → 2023-10-31 03:47 | Outpatient (CLI) | payer MEDICARE, SELFPAY ==
--- NOTE | 2023-10-31 12:45 | DI.US_ITS ---
Exam(s) US PELVIS TRANSVAGINAL EXAM: US PELVIS TRANSVAGINAL CLINICAL HISTORY: PMB, POSTMENOPAUSAL BLEEDING, N95.0 TECHNIQUE: Transabdominal and transvaginal imaging was performed using standard protocol. COMPARISON: CT CT ABDOMEN PELVIS W from 08/13/2020 US US PELVIS TRANSVAGINAL from 07/31/2022 FINDINGS: UTERUS: Anteverted. 4.9 x 2.2 x 3.2 cm Endometrium: 2 mm . No appears homogeneous. No cystic spaces noted on the current exam as was seen previously. Myometrium: Calcified fibroids noted. Noncalcified fibroids measuring 1.3 and 1 cm respectively also present. Cervix: Unremarkable. OVARIES: Right: Cyst or mass: None. Left: Cyst or mass: None. DOPPLER: Color: Symmetric and uniform flow to both ovaries. No hyperemia. CUL-DE-SAC: Free fluid: None. IMPRESSION: 1. Calcified and noncalcified fibroids. The endometrial stripe appears within normal limits.. 2. Unremarkable bilateral ovaries. DATA REPOSITORY:
== END ==
PROVIDERS: PCP Nurse Practitioner Family; Visit Provider Obstetrics & Gynecology
DX: N95.0 Postmenopausal bleeding (principal)
CPT/HCPCS: 76830; 76856

== ENCOUNTER 2023-11-20 12:35 | Outpatient (REF) | payer MEDICARE, SELFPAY ==
[2023-11-20 16:42] LABS: TSH (W/Ref FT4) 0.07 uIU/mL (0.36-3.74)
[2023-11-20 17:25] LABS: FREE T4 1.27 ng/dL (0.76-1.46)
== END 2023-11-20 12:36 | disposition home or self-care (01) ==
LOC: NCHCN 12:35
PROVIDERS: PCP Nurse Practitioner Family; Visit Provider Nurse Practitioner Family
DX: E03.9 Hypothyroidism, unspecified (principal)
CPT/HCPCS: 84439; 84443

== ENCOUNTER 2024-03-25 15:23 | Outpatient (REF) | payer MEDICARE, SELFPAY ==
[2024-03-25 19:18] LABS: ALT 28 U/L (14-59); AST 33 U/L (15-37); Albumin 3.9 g/dL (3.4-5.0); Alkaline Phosphatase 111 U/L (46-116); Anion Gap 7.3 mmol/L (3-11); BUN 8 mg/dL (7-18); Bilirubin, Total 0.26 mg/dL (0.2-1.0); CO2 31.7 mmol/L (21.0-32.0); CREATININE 0.7 mg/dL (0.55-1.02); Calcium 9.7 mg/dL (8.5-10.1); Chloride 103 mmol/L (98-107); Estimated GFR 93.56 (mL/min/1.73m2); Glucose 94 mg/dL (74-106); Sodium 142 mmol/L (136-145); TSH (W/Ref FT4) 2.03 uIU/mL (0.36-3.74)
== END 2024-03-25 15:24 | disposition home or self-care (01) ==
LOC: NCHCN 15:23
PROVIDERS: PCP Nurse Practitioner Family; Visit Provider Nurse Practitioner Family
DX: Z00.00 Encounter for general adult medical examination without abnormal findings (principal)
CPT/HCPCS: 80053; 84443

== ENCOUNTER 2024-04-16 01:46 | Outpatient (CLI) | payer MEDICARE, SELFPAY ==
--- NOTE | 2024-04-16 | DI.MAMMO_ITS ---
Exam(s) MAMMO SCREENING EXAM: MAMMO SCREENING CLINICAL HISTORY: SCREENING, Z12.31 TECHNIQUE: Mammograms were interpreted according to the usual protocol including computer analysis w [employer] CAD system, tomosynthesis and C-view imaging. COMPARISON: 2015 through 2022 FINDINGS: The breasts are composed of scattered fibroglandular densities, Breast Density category B. No suspicious masses or suspicious microcalcifications are seen. No skin thickening or abnormal axillary lymph nodes are seen. There has been no significant change from prior exams. IMPRESSION: BI-RADS Category 1, Negative mammogram Yearly screening mammography is recommended. Breast Density - Category B, scattered fibroglandular densities. A negative radiographic report should not delay biopsy if a dominant or clinically suspicious mass is present. Up to ten percent of cancers are not identified on mammography. A negative report may reinforce clinical impression. Adenosis and dense breasts may obscure an underlying neoplasm. False positive reports average 6 to 10%. Patient will receive a letter notifying them of these results.
== END 2024-04-16 02:06 ==
LOC: DI 01:46
PROVIDERS: PCP Nurse Practitioner Family; Visit Provider Nurse Practitioner Family
DX: Z12.31 Encounter for screening mammogram for malignant neoplasm of breast (principal); R92.323 Mammographic fibroglandular density, bilateral breasts
CPT/HCPCS: 77063; 77067

== ENCOUNTER 2024-06-14 14:32 | Outpatient (CLI) | payer MEDICARE, SELFPAY ==
--- NOTE | 2024-06-14 14:59 | DI.RAD_ITS ---
Exam(s) XR FOOT RT COMPLETE EXAM: XR FOOT RT COMPLETE CLINICAL HISTORY: evaluate pathology. TECHNIQUE: 2D digital imaging was performed of the right foot. Three images were obtained. AP, obl ique and lateral views were obtained. COMPARISON: No exams were available for comparison FINDINGS: BONES: No acute fracture is present. No bony destructive lesion is seen. JOINTS: No dislocation present. SOFT TISSUE: Normal. IMPRESSION: Unremarkable radiographs of the right foot. DATA REPOSITORY: RADIATION DOSE DELIVERED:
--- NOTE | 2024-06-14 15:42 | DI.VRAD_ITS ---
PROCEDURE INFORMATION: Exam: XR Right Foot Exam date and time: 06/14/2024 3:05 PM Age: 68 years old Clinical indication: Pain; Foot; Right TECHNIQUE: Imaging protocol: Radiologic exam of the right foot. Views: 3 or more views. COMPARISON: No relevant prior studies available. FINDINGS: Bones/joints: Normal. Soft tissues: Normal. IMPRESSION: No evidence for acute abnormality. Dictated and Authenticated by: Nikki Ricketts MD. Orderin Erlin Garcia MD
== END 2024-06-14 14:52 ==
PROVIDERS: PCP Nurse Practitioner Family; Visit Provider Nurse Practitioner Family
DX: M79.671 Pain in right foot (principal)
CPT/HCPCS: 73630

== ENCOUNTER 2024-10-21 01:37 | Outpatient (CLI) | payer MEDICARE, SELFPAY ==
--- NOTE | 2024-10-21 06:15 | DI.RAD_ITS ---
Exam(s) XR FOOT RT COMPLETE EXAM: XR FOOT RT COMPLETE CLINICAL HISTORY: Right foot pain,m79.671. TECHNIQUE: 2D digital imaging was performed. COMPARISON: CR,XR XR FOOT RT COMPLETE from 06/14/2024 FINDINGS: 3 views No evidence of acute fracture or diastasis of the Lisfranc joint. Great toe metatarsophalangeal join t appears unremarkable as do the other articulations of the foot. Small accessory ossicle is noted l ateral to the cuboid bone. No inferior calcaneal spur nor enthesophytes evident. IMPRESSION: No significant osseous findings in the foot nor significant change compared to prior images of 2024 DATA REPOSITORY: RADIATION DOSE DELIVERED:
== END 2024-10-21 01:57 ==
LOC: DI 01:37
PROVIDERS: PCP Nurse Practitioner Family; Visit Provider Podiatrist
DX: M79.671 Pain in right foot (principal)
CPT/HCPCS: 29580; 29850; 73630

== ENCOUNTER 2024-11-25 09:05 | Outpatient (CLI) | payer MEDICARE, SELFPAY ==
--- NOTE | 2024-11-25 08:30 | DI.RAD_ITS ---
Exam(s) XR FOOT RT COMPLETE EXAM: XR FOOT RT COMPLETE CLINICAL HISTORY: fx? stress fracture, r foot M84.374A. TECHNIQUE: 2D digital imaging was performed of the right foot. Three images were obtained. AP, oblique and lateral views were obtained. COMPARISON: CR,XR XR FOOT RT COMPLETE from 06/14/2024 CR XR FOOT RT COMPLETE from 10/21/2024 FINDINGS: BONES: No acute fracture is present. No bony destructive lesion is seen. There is no evidence of periosteal reaction. No bony collapse is seen. JOINTS: No dislocation present. The joint spaces are well maintained. SOFT TISSUE: Normal. IMPRESSION: Unremarkable radiographs of the right foot. If there is continued clinical concern, an MRI may be obtained for further evaluation. DATA REPOSITORY: RADIATION DOSE DELIVERED:
== END 2024-11-25 09:25 ==
LOC: DI 09:05
PROVIDERS: PCP Nurse Practitioner Family; Visit Provider Podiatrist
DX: M84.374A Stress fracture, right foot, initial encounter for fracture (principal); M79.671 Pain in right foot
CPT/HCPCS: 73630

== ENCOUNTER 2025-03-25 15:44 | Outpatient (REF) | payer MEDICARE, SELFPAY ==
[2025-03-25 21:26] LABS: TSH (W/Ref FT4) 3.01 uIU/mL (0.55-4.78)
[2025-03-25 21:29] LABS: ALT 19 U/L (10-49); AST 25 U/L (<34); Albumin 4.3 g/dL (3.4-5.0); Alkaline Phosphatase 92 U/L (46-116); Anion Gap 6.4 mmol/L (3-11); BUN 11 mg/dL (9-23); Bilirubin, Total 0.30 mg/dL (0.2-1.2); CO2 29.6 mmol/L (20.0-31.0); Calcium 9.3 mg/dL (8.3-10.6); Chloride 105 mmol/L (98-107); Cholesterol 241 mg/dL (<200); Glucose 130 mg/dL (74-106); HDL Cholesterol 88 mg/dL (>40); Potassium 4.0 mmol/L (3.5-5.1); Sodium 141 mmol/L (136-145); Total Protein 7.2 g/dL (5.7-8.2)
== END 2025-03-25 15:45 | disposition home or self-care (01) ==
LOC: NCHCN 15:44
PROVIDERS: PCP Nurse Practitioner Family; Visit Provider Nurse Practitioner Family
DX: Z00.00 Encounter for general adult medical examination without abnormal findings (principal)
CPT/HCPCS: 80053; 80061; 84443

== ENCOUNTER 2025-04-15 13:45 | Outpatient (CLI) | payer MEDICARE, SELFPAY ==
--- NOTE | 2025-04-15 13:00 | DI.RAD_ITS ---
Exam(s) XR HIP LT COMPLETE AP PELVIS EXAM: XR HIP LT COMPLETE AP PELVIS CLINICAL HISTORY: LEFT HIP PAIN. TECHNIQUE: 2D digital imaging was performed of the left hip. Two views were obtained. AP pelvis and lateral left hip views were obtained. FINDINGS: BONES: No acute fracture is present. No bony destructive lesion is seen. JOINTS: There is asymmetric joint space narrowing in the hips bilaterally. The sacroiliac joints are well maintained as is the symphysis pubis. Degenerative changes are seen in the lower lumbar spine. SOFT TISSUE: Normal. IMPRESSION: Mild degenerative changes seen in the hips bilaterally. DATA REPOSITORY: RADIATION DOSE DELIVERED:
== END 2025-04-15 13:46 | disposition home or self-care (01) ==
LOC: DIORS 13:45
PROVIDERS: PCP Nurse Practitioner Family; Referring Provider Nurse Practitioner Family; Visit Provider Student in an Organized Health Care Education/Training Program
DX: M25.552 Pain in left hip (principal); M16.0 Bilateral primary osteoarthritis of hip
CPT/HCPCS: 73502

== ENCOUNTER → 2025-04-21 00:24 | Outpatient (CLI) | payer MEDICARE, SELFPAY ==
--- NOTE | 2025-04-21 | DI.MAMMO_ITS ---
Exam(s) MAMMO SCREENING EXAM: MAMMO SCREENING CLINICAL HISTORY: SCREENING, Z12.31 TECHNIQUE: Mammograms were interpreted according to the usual protocol including computer analysis with CAD system, tomosynthesis and C-view imaging. COMPARISON: 2015 through 2023 FINDINGS: The breasts are composed of scattered fibroglandular densities, Breast Density category B. No suspicious masses or suspicious microcalcifications are seen. No skin thickening or abnormal axillary lymph nodes are seen. There has been no significant change from prior exams. IMPRESSION: BI-RADS Category 1, Negative mammogram Yearly screening mammography is recommended. Breast Density - Category B - There are scattered areas of fibroglandular density. Breast density Category C or D implies that the patient has dense breast tissue. Dense breast tissue can make it harder to find cancer on a mammogram. Dense breast tissue is also associated with an increased risk of breast cancer. This information about the result of the mammogram report was provided to the patient to raise their awareness. Use this report when you speak with the patient about their risks for breast cancer, which includes their family history. At that time, you may recommend additional screening tests (Ultrasound or MRI) as these tests may add significant information. A negative radiographic report should not delay biopsy if a dominant or clinically suspicious mass is present. Up to ten percent of cancers are not identified on mammography. A negative report may reinforce clinical impression. Adenosis and dense breasts may obscure an underlying neoplasm. False positive reports average 6 to 10%. Patient will receive a letter notifying them of these results.
== END ==
LOC: DI 00:24
PROVIDERS: PCP Nurse Practitioner Family; Visit Provider Nurse Practitioner Family
DX: Z12.31 Encounter for screening mammogram for malignant neoplasm of breast (principal); R92.323 Mammographic fibroglandular density, bilateral breasts
CPT/HCPCS: 77063; 77067